=== PATIENT | female | born 1930 | race Asian ===

== ENCOUNTER 2017-04-03 20:05 | Inpatient (IN) | payer OTHER, MEDICARE ==
[~2017-04-03] VITALS: Ht 152.4 cm; Wt 55.3 kg
[~2017-04-03 20:05] MED LIST: AMLODIPINE BESY10 M1 PO; ANTIVERT/2525 MG PO; DONEPEZIL HYDRO10 M2 PO; MELOXICAM15 M1 PO; NAMENDA XR28 MG PO; OYSTER SHELL CA1 T11 PO; RANITIDINE HCL150 M1 PO; SIMVASTATIN10 M1 PO; SIMVASTATIN20 M1 PO; ZOF4 PO
[2017-04-03 21:15] LABS: microscopic required? YES; urine erythrocyte TRACE (NEGATIVE)
[2017-04-03 21:19] LABS: CALCIUM 9.8 mg/dL (8.5-10.1); CARBON DIOXIDE 29.9 mmol/L (21-32); CHLORIDE SERUM 103 mmol/L (98-107); GLUCOSE SERUM 116 mg/dL (74-106); POTASSIUM SERUM 3.8 mmol/L (3.5-5.1); SODIUM SERUM 144 mmol/L (136-145)
[2017-04-03 21:21] LABS: BASOPHIL % 0.5 % (0-2); PLATELET COUNT 251 x10^3mcL (130-400); RED CELL DISTRIBUTION WIDTH 13.3 % (11.5-14.5)
[2017-04-03 21:24] LABS: ALBUMIN 4.3 g/dL (3.4-5.0); ALKALINE PHOSPHATASE 86 U/L (46-116); ALT/SGPT 24 U/L (14-59); AST/SGOT 25 U/L (15-37); BILIRUBIN TOTAL 0.3 mg/dL (0.20-1.00); MAGNESIUM 2.4 mg/dL (1.8-2.4)
[2017-04-03 21:25] LABS: CHOLESTEROL 290 mg/dL (<200); HDL CHOLESTEROL 111 mg/dL (40-60); TOTAL PROTEIN, SERUM 8.9 g/dL (6.4-8.2)
[2017-04-03] MEDS ORDERED: NAMZARIC1 ECC (23:42)
[2017-04-04] VITALS (7 sets, daily range): BP systolic 100–143; BP diastolic 43–77; Ht 152.4 cm; Wt 55.3 kg
[2017-04-04] MEDS ORDERED: NAMENDA10 M2 PO (01:42)
[2017-04-04] MEDS ORDERED: ARICEPT5 MG PO (01:43)
[2017-04-04 02:12] LABS: T3 TOTAL 1.23 ng/mL
[2017-04-04 02:16] LABS: FREE T4 1.11 ng/dL (0.76-1.46); FREE THYROXINE INDEX 3.3 ug/dL (1.4-4.5); T4(THYROXINE) 10.5 ug/dL (4.7-13.3)
[2017-04-04 02:18] LABS: PHOSPHOROUS 3.4 mg/dL (2.5-4.9)
[2017-04-04 02:19] LABS: CHOLESTEROL/HDL RATIO 2.7
[2017-04-04 07:04] LABS: CALCIUM 8.7 mg/dL (8.5-10.1); CARBON DIOXIDE 26.6 mmol/L (21-32); CHLORIDE SERUM 110 mmol/L (98-107); CREATININE SERUM 0.9 mg/dL (0.6-1.0); GLUCOSE SERUM 90 mg/dL (74-106); POTASSIUM SERUM 4.1 mmol/L (3.5-5.1); SODIUM SERUM 144 mmol/L (136-145)
[2017-04-04] MEDS ORDERED: MECLIZINE HCL12.5 MG PO (16:06)
[2017-04-04] MEDS ORDERED: LIPI10 PO (16:06)
== END 2017-04-04 17:30 | disposition home or self-care (01) | DRG 469 ==
LOC: ED 20:05 → DU 23:49
PROVIDERS: Emergency Medicine; Family Medicine Sports Medicine
DX: N17.0 Acute kidney failure with tubular necrosis (principal); G93.41 Metabolic encephalopathy; G45.9 Transient cerebral ischemic attack, unspecified; G90.8 Other disorders of autonomic nervous system; E86.0 Dehydration; G30.9 Alzheimer's disease, unspecified; F02.80 Dementia in other diseases classified elsewhere, unspecified severity, without behavioral disturbance, psychotic disturbance, mood disturbance, and anxiety; I10 Essential (primary) hypertension; E78.00 Pure hypercholesterolemia, unspecified; R31.9 Hematuria, unspecified; E78.2 Mixed hyperlipidemia; E02 Subclinical iodine-deficiency hypothyroidism; R73.03 Prediabetes; M19.90 Unspecified osteoarthritis, unspecified site; Z82.49 Family history of ischemic heart disease and other diseases of the circulatory system; Z82.3 Family history of stroke
CPT/HCPCS: 83880; 84439; 97530-GP; J2550; J7030; Q0092

== ENCOUNTER 2018-02-27 08:47 | Emergency (ER) | payer MEDICARE, OTHER | END 2018-02-27 11:39 | disposition home or self-care (01) | LOC: ED 08:47 ==